=== PATIENT | male | born 1960 | race Caucasian/White ===

== ENCOUNTER 2020-06-12 16:39 | Inpatient (IN) ==
[2020-06-14] MEDS ORDERED: Nitroglycerin 0.4 MG TAB.SUBL SL PRN (04:05)
[2020-06-14] MEDS ORDERED: D5% in Water 1,000 ML IVC PRN (04:13)
[2020-06-14] MEDS ORDERED: Dextrose Gel 15 GM/37.5 ML TUBE PO PRN ×2 (04:13)
[2020-06-14] MEDS ORDERED: *HR* Dextrose 50 % in Water (Vial) 50 ML VIAL IVP PRN (04:13)
[2020-06-14] MEDS: *HR* HYDROcodone/Acet 5/325 mg TABLET PO PRN ×4 (05:53→23:55)
[2020-06-14] MEDS: INVOKAMET PO SCH ×2 (08:49→20:23)
[2020-06-14] MEDS: Insulin LISPRO 300 UNITS/3 ML VIAL SUBQ SCH ×4 (08:49→20:21)
[2020-06-14] MEDS: Furosemide 20 MG TABLET PO SCH (08:50)
[2020-06-14] MEDS: Aspirin Enteric Coated 81 MG Tablet PO SCH (08:50)
[2020-06-14] MEDS: Magnesium Oxide 400 MG TABLET PO SCH ×2 (08:50→20:23)
[2020-06-14] MEDS: lisinopriL 5 MG TABLET PO SCH (08:51)
[2020-06-14] MEDS: Gabapentin 400 MG CAPSULE PO SCH ×4 (08:51→20:22)
[2020-06-14] MEDS: Apixaban 5 MG TABLET PO SCH ×2 (08:51→20:22)
[2020-06-14] MEDS ORDERED: Insulin DETEMIR 100 UNIT/ML per UNIT SUBQ SCH (09:00)
[2020-06-14] MEDS: Insulin DETEMIR 100 UNIT/ML X5UNITS SUBQ SCH ×2 (09:12→20:22)
[2020-06-14 09:43] LABS: Basophils # 0.1 K/mcL (0.0-0.2); Basophils % 0.5 %; Eosinophils # 0.2 K/mcL (0.0-0.6); Eosinophils % 2.1 %; Hematocrit 38.5 % (37.5-50.1); Hemoglobin 12.7 g/dL (12.9-16.9); Immature Granulocytes % 0.6 % (0-4); Lymphocytes # 2.6 K/mcL (0.6-4.6); Lymphocytes % 26.7 %; Mean Corpuscular Hemoglobin 28.9 pg (28.0-33.3); Mean Corpuscular Volume 87.5 fL (83.0-100.0); Mean Platelet Volume 11.2 fL (9.4-12.4); Monocytes # 0.9 K/mcL (0.0-1.3); Monocytes % 9.2 %; Neutrophils # 5.9 K/mcL (1.6-8.9); Platelet Count 239 K/mcL (140-400); Red Cell Distribution Width 12.8 % (11.5-14.5); Segmented Neutrophils % 60.9 %; White Blood Count 9.6 K/mcL (4.3-11.1)
[2020-06-14 09:59] LABS: BUN/Creatinine Ratio 23 (6-26); Blood Urea Nitrogen 28 mg/dL (8-23); Calcium 8.6 mg/dL (8.6-10.3); Carbon Dioxide 29 mEq/L (23-29); Chloride 99 mEq/L (98-107); Glucose 330 mg/dL (70-105); Osmolality,Calculated 294 (280-300); Sodium 133 mEq/L (136-145); eGFR For African Americans > 60 (> 60); eGFR For Non-African Americans > 60 (> 60)
[2020-06-14 10:38] LABS: Troponin I 0.04 ng/mL (< 0.04)
[2020-06-14] MEDS: levoFLOXacin 750 MG TABLET PO SCH (14:51)
[2020-06-14] MEDS: Nicotine 21 MG PATCH.TD24 TD SCH (14:53)
[2020-06-15] MEDS: Nicotine 21 MG PATCH.TD24 TD SCH (08:27)
[2020-06-15] MEDS: lisinopriL 5 MG TABLET PO SCH (08:28)
[2020-06-15] MEDS: Aspirin Enteric Coated 81 MG Tablet PO SCH (08:28)
[2020-06-15] MEDS: Gabapentin 400 MG CAPSULE PO SCH ×4 (08:28→20:19)
[2020-06-15] MEDS: Magnesium Oxide 400 MG TABLET PO SCH ×2 (08:29→20:20)
[2020-06-15] MEDS: Insulin DETEMIR 100 UNIT/ML X5UNITS SUBQ SCH ×2 (08:29→20:23)
[2020-06-15] MEDS: levoFLOXacin 750 MG TABLET PO SCH (08:29)
[2020-06-15] MEDS: Apixaban 5 MG TABLET PO SCH ×2 (08:29→20:20)
[2020-06-15] MEDS: Furosemide 20 MG TABLET PO SCH (08:29)
[2020-06-15] MEDS: *HR* HYDROcodone/Acet 5/325 mg TABLET PO PRN ×4 (08:33→22:12)
[2020-06-15] MEDS: Insulin LISPRO 300 UNITS/3 ML VIAL SUBQ SCH ×4 (09:33→20:23)
[2020-06-15] MEDS: INVOKAMET PO SCH ×2 (09:50→20:26)
[2020-06-15] MEDS: polyethylene glycoL 3350 17 GM POWD.PACK PO PRN (10:22)
[2020-06-15] MEDS ORDERED: Ketorolac 30 MG/ML VIAL IM ONE (18:14)
[2020-06-15 20:24] LABS: BUN/Creatinine Ratio 18 (6-26); Blood Urea Nitrogen 24 mg/dL (8-23); Calcium 8.6 mg/dL (8.6-10.3); Carbon Dioxide 25 mEq/L (23-29); Chloride 102 mEq/L (98-107); Glucose 198 mg/dL (70-105); Magnesium 1.4 mg/dL (1.6-2.6); Osmolality,Calculated 286 (280-300); Potassium 4.6 mEq/L (3.5-5.1); Sodium 133 mEq/L (136-145); eGFR For African Americans > 60 (> 60); eGFR For Non-African Americans 53 (> 60)
[2020-06-16] MEDS: *HR* HYDROcodone/Acet 5/325 mg TABLET PO PRN ×6 (02:23→23:59)
[2020-06-16] MEDS: EXENATIDE MICROSPHERES 2 MG SQ SCH (03:29)
[2020-06-16] MEDS: levoFLOXacin 750 MG TABLET PO SCH (07:51)
[2020-06-16] MEDS: Aspirin Enteric Coated 81 MG Tablet PO SCH (07:52)
[2020-06-16] MEDS: Gabapentin 400 MG CAPSULE PO SCH ×4 (07:52→19:56)
[2020-06-16] MEDS: Furosemide 20 MG TABLET PO SCH (07:52)
[2020-06-16] MEDS: Insulin LISPRO 300 UNITS/3 ML VIAL SUBQ SCH ×4 (07:53→19:57)
[2020-06-16] MEDS: Apixaban 5 MG TABLET PO SCH ×2 (07:53→19:55)
[2020-06-16] MEDS: lisinopriL 5 MG TABLET PO SCH (07:53)
[2020-06-16] MEDS: Magnesium Oxide 400 MG TABLET PO SCH (07:53)
[2020-06-16] MEDS: INVOKAMET PO SCH ×2 (07:54→20:00)
[2020-06-16] MEDS: Nicotine 21 MG PATCH.TD24 TD SCH (07:54)
[2020-06-16] MEDS ORDERED: 0.9 % Sodium Chloride 1,000 ML IVC SCH (08:15)
[2020-06-16] MEDS: Insulin DETEMIR 100 UNIT/ML X5UNITS SUBQ SCH ×2 (08:34→19:56)
[2020-06-16] MEDS ORDERED: Bisacodyl 10 MG RECTAL SUPPOSITORY RC PRN (17:13)
[2020-06-17] MEDS: *HR* HYDROcodone/Acet 5/325 mg TABLET PO PRN ×4 (04:49→19:48)
[2020-06-17 06:38] LABS: Basophils # 0.1 K/mcL (0.0-0.2); Basophils % 0.6 %; Eosinophils # 0.2 K/mcL (0.0-0.6); Eosinophils % 2.4 %; Hematocrit 36.1 % (37.5-50.1); Hemoglobin 11.7 g/dL (12.9-16.9); Immature Granulocytes % 0.9 % (0-4); Lymphocytes # 1.9 K/mcL (0.6-4.6); Lymphocytes % 23.4 %; Mean Corpuscular HGB Conc 32.4 g/dL (31.6-35.5); Mean Corpuscular Hemoglobin 28.8 pg (28.0-33.3); Mean Corpuscular Volume 88.9 fL (83.0-100.0); Mean Platelet Volume 11.9 fL (9.4-12.4); Monocytes % 12.1 %; Neutrophils # 4.8 K/mcL (1.6-8.9); Platelet Count 227 K/mcL (140-400); Red Blood Count 4.06 M/mcL (4.19-5.50); Red Cell Distribution Width 12.9 % (11.5-14.5); Segmented Neutrophils % 60.6 %
[2020-06-17 07:19] LABS: BUN/Creatinine Ratio 24 (6-26); Blood Urea Nitrogen 30 mg/dL (8-23); Calcium 8.4 mg/dL (8.6-10.3); Carbon Dioxide 24 mEq/L (23-29); Chloride 106 mEq/L (98-107); Glucose 200 mg/dL (70-105); Magnesium 1.8 mg/dL (1.6-2.6); Osmolality,Calculated 294 (280-300); Potassium 4.6 mEq/L (3.5-5.1); Sodium 136 mEq/L (136-145); eGFR For African Americans > 60 (> 60); eGFR For Non-African Americans 59 (> 60)
[2020-06-17] MEDS: Nicotine 21 MG PATCH.TD24 TD SCH (09:39)
[2020-06-17] MEDS: lisinopriL 5 MG TABLET PO SCH (09:41)
[2020-06-17] MEDS: Apixaban 5 MG TABLET PO SCH ×2 (09:41→19:49)
[2020-06-17] MEDS: Gabapentin 400 MG CAPSULE PO SCH ×4 (09:41→19:47)
[2020-06-17] MEDS: Furosemide 20 MG TABLET PO SCH (09:41)
[2020-06-17] MEDS: levoFLOXacin 750 MG TABLET PO SCH (09:41)
[2020-06-17] MEDS: Magnesium Oxide 400 MG TABLET PO SCH ×2 (09:42→19:48)
[2020-06-17] MEDS: Aspirin Enteric Coated 81 MG Tablet PO SCH (09:42)
[2020-06-17] MEDS: Insulin LISPRO 300 UNITS/3 ML VIAL SUBQ SCH ×4 (09:42→19:51)
[2020-06-17] MEDS: Insulin DETEMIR 100 UNIT/ML X5UNITS SUBQ SCH ×2 (09:43→19:50)
[2020-06-17] MEDS: INVOKAMET PO SCH ×2 (10:10→20:16)
[2020-06-17] MEDS: Pregabalin 50 MG CAPSULE PO SCH (21:40)
[2020-06-18] MEDS: *HR* HYDROcodone/Acet 7.5/325 mg TABLET PO PRN ×5 (02:38→20:27)
[2020-06-18] MEDS: Nicotine 21 MG PATCH.TD24 TD SCH (08:56)
[2020-06-18] MEDS: Furosemide 20 MG TABLET PO SCH (08:57)
[2020-06-18] MEDS: lisinopriL 5 MG TABLET PO SCH (08:57)
[2020-06-18] MEDS: Apixaban 5 MG TABLET PO SCH ×2 (08:58→20:27)
[2020-06-18] MEDS: Magnesium Oxide 400 MG TABLET PO SCH ×2 (08:58→20:27)
[2020-06-18] MEDS: Aspirin Enteric Coated 81 MG Tablet PO SCH (08:58)
[2020-06-18] MEDS: Insulin DETEMIR 100 UNIT/ML X5UNITS SUBQ SCH ×2 (08:58→20:27)
[2020-06-18] MEDS: Pregabalin 50 MG CAPSULE PO SCH ×3 (09:00→20:27)
[2020-06-18] MEDS: INVOKAMET PO SCH ×2 (09:00→16:11)
[2020-06-18] MEDS: Insulin LISPRO 300 UNITS/3 ML VIAL SUBQ SCH ×4 (09:01→20:27)
[2020-06-18] MEDS ORDERED: Ketorolac 30 MG/ML VIAL IVP ONE (22:47)
[2020-06-19] MEDS: *HR* HYDROcodone/Acet 7.5/325 mg TABLET PO PRN ×5 (00:42→20:31)
[2020-06-19] MEDS: Nicotine 21 MG PATCH.TD24 TD SCH (08:33)
[2020-06-19] MEDS: Furosemide 20 MG TABLET PO SCH (08:33)
[2020-06-19] MEDS: Pregabalin 50 MG CAPSULE PO SCH ×3 (08:33→20:31)
[2020-06-19] MEDS: Magnesium Oxide 400 MG TABLET PO SCH ×2 (08:34→20:30)
[2020-06-19] MEDS: Aspirin Enteric Coated 81 MG Tablet PO SCH (08:34)
[2020-06-19] MEDS: lisinopriL 5 MG TABLET PO SCH (08:34)
[2020-06-19] MEDS: Apixaban 5 MG TABLET PO SCH ×2 (08:35→20:45)
[2020-06-19] MEDS: Insulin DETEMIR 100 UNIT/ML X5UNITS SUBQ SCH ×2 (08:35→20:34)
[2020-06-19] MEDS: Insulin LISPRO 300 UNITS/3 ML VIAL SUBQ SCH ×4 (08:36→20:33)
[2020-06-19] MEDS: INVOKAMET PO SCH ×2 (08:37→15:58)
[2020-06-20] MEDS: *HR* HYDROcodone/Acet 7.5/325 mg TABLET PO PRN ×4 (01:10→19:47)
[2020-06-20] MEDS: Insulin LISPRO 300 UNITS/3 ML VIAL SUBQ SCH ×4 (08:29→21:29)
[2020-06-20] MEDS: Magnesium Oxide 400 MG TABLET PO SCH ×2 (08:30→19:48)
[2020-06-20] MEDS: Insulin DETEMIR 100 UNIT/ML X5UNITS SUBQ SCH ×2 (08:30→19:59)
[2020-06-20] MEDS: Aspirin Enteric Coated 81 MG Tablet PO SCH (08:30)
[2020-06-20] MEDS: Nicotine 21 MG PATCH.TD24 TD SCH (08:30)
[2020-06-20] MEDS: Apixaban 5 MG TABLET PO SCH ×2 (08:30→19:47)
[2020-06-20] MEDS: lisinopriL 5 MG TABLET PO SCH (08:30)
[2020-06-20] MEDS: Pregabalin 50 MG CAPSULE PO SCH ×3 (08:30→19:48)
[2020-06-20] MEDS: INVOKAMET PO SCH ×2 (08:31→17:54)
[2020-06-20] MEDS: Furosemide 20 MG TABLET PO SCH (08:40)
[2020-06-20] MEDS: rOPINIRole 1 MG TABLET PO SCH (19:48)
[2020-06-21] MEDS: *HR* HYDROcodone/Acet 7.5/325 mg TABLET PO PRN ×4 (03:13→20:06)
[2020-06-21] MEDS: Magnesium Oxide 400 MG TABLET PO SCH ×2 (08:51→20:05)
[2020-06-21] MEDS: Insulin DETEMIR 100 UNIT/ML X5UNITS SUBQ SCH ×2 (08:51→20:07)
[2020-06-21] MEDS: Apixaban 5 MG TABLET PO SCH ×2 (08:51→20:05)
[2020-06-21] MEDS: Insulin LISPRO 300 UNITS/3 ML VIAL SUBQ SCH ×4 (08:51→19:58)
[2020-06-21] MEDS: Pregabalin 50 MG CAPSULE PO SCH ×3 (08:52→20:05)
[2020-06-21] MEDS: Furosemide 20 MG TABLET PO SCH (08:52)
[2020-06-21] MEDS: lisinopriL 5 MG TABLET PO SCH (08:52)
[2020-06-21] MEDS: Aspirin Enteric Coated 81 MG Tablet PO SCH (08:52)
[2020-06-21] MEDS: Nicotine 21 MG PATCH.TD24 TD SCH (09:02)
[2020-06-21] MEDS: INVOKAMET PO SCH ×2 (09:08→15:55)
[2020-06-21] MEDS: rOPINIRole 1 MG TABLET PO SCH (20:05)
[2020-06-22] MEDS: *HR* HYDROcodone/Acet 7.5/325 mg TABLET PO PRN ×5 (00:05→19:58)
[2020-06-22] MEDS: Aspirin Enteric Coated 81 MG Tablet PO SCH (08:06)
[2020-06-22] MEDS: Apixaban 5 MG TABLET PO SCH ×2 (08:07→19:44)
[2020-06-22] MEDS: Furosemide 20 MG TABLET PO SCH (08:07)
[2020-06-22] MEDS: lisinopriL 5 MG TABLET PO SCH (08:07)
[2020-06-22] MEDS: Magnesium Oxide 400 MG TABLET PO SCH ×2 (08:08→19:43)
[2020-06-22] MEDS: Pregabalin 50 MG CAPSULE PO SCH ×3 (08:08→19:44)
[2020-06-22] MEDS: Insulin LISPRO 300 UNITS/3 ML VIAL SUBQ SCH ×4 (08:08→19:49)
[2020-06-22] MEDS: Insulin DETEMIR 100 UNIT/ML X5UNITS SUBQ SCH ×2 (08:08→19:48)
[2020-06-22] MEDS: Nicotine 21 MG PATCH.TD24 TD SCH (08:09)
[2020-06-22] MEDS: INVOKAMET PO SCH ×2 (08:09→15:59)
[2020-06-22] MEDS: rOPINIRole 1 MG TABLET PO SCH (19:44)
[2020-06-23] MEDS: *HR* HYDROcodone/Acet 7.5/325 mg TABLET PO PRN ×6 (00:01→21:28)
[2020-06-23] MEDS: EXENATIDE MICROSPHERES 2 MG SQ SCH (03:16)
[2020-06-23] MEDS: Insulin LISPRO 300 UNITS/3 ML VIAL SUBQ SCH ×4 (08:00→21:31)
[2020-06-23] MEDS: lisinopriL 5 MG TABLET PO SCH (08:10)
[2020-06-23] MEDS: Nicotine 21 MG PATCH.TD24 TD SCH (08:10)
[2020-06-23] MEDS: Aspirin Enteric Coated 81 MG Tablet PO SCH (08:11)
[2020-06-23] MEDS: Furosemide 20 MG TABLET PO SCH (08:11)
[2020-06-23] MEDS: Magnesium Oxide 400 MG TABLET PO SCH ×2 (08:11→21:28)
[2020-06-23] MEDS: Apixaban 5 MG TABLET PO SCH ×2 (08:11→21:28)
[2020-06-23] MEDS: Pregabalin 50 MG CAPSULE PO SCH ×3 (08:11→21:28)
[2020-06-23] MEDS: INVOKAMET PO SCH ×2 (08:12→16:48)
[2020-06-23] MEDS: Insulin DETEMIR 100 UNIT/ML X5UNITS SUBQ SCH ×2 (10:14→21:29)
[2020-06-23] MEDS: Hyoscyamine SL 0.125 MG TAB.SUBL SL PRN (18:31)
[2020-06-23] MEDS ORDERED: Morphine Sulfate 2 MG/ML SYRINGE IVP ONE (20:09)
[2020-06-23 20:36] LABS: Basophils # 0.1 K/mcL (0.0-0.2); Basophils % 0.6 %; Eosinophils # 0.2 K/mcL (0.0-0.6); Eosinophils % 2.7 %; Hemoglobin 12.6 g/dL (12.9-16.9); Immature Granulocytes % 0.3 % (0-4); Lymphocytes # 1.9 K/mcL (0.6-4.6); Lymphocytes % 21.1 %; Mean Corpuscular HGB Conc 33.2 g/dL (31.6-35.5); Mean Corpuscular Hemoglobin 29.1 pg (28.0-33.3); Mean Corpuscular Volume 87.8 fL (83.0-100.0); Mean Platelet Volume 11.8 fL (9.4-12.4); Monocytes % 11.7 %; Neutrophils # 5.6 K/mcL (1.6-8.9); Platelet Count 199 K/mcL (140-400); Red Blood Count 4.33 M/mcL (4.19-5.50); Red Cell Distribution Width 12.9 % (11.5-14.5); Segmented Neutrophils % 63.6 %; White Blood Count 8.8 K/mcL (4.3-11.1)
[2020-06-23 20:42] LABS: Prothrombin Time 14.2 Seconds (9.4-12.1)
[2020-06-23 20:43] LABS: INR 1.2
[2020-06-23 20:46] LABS: Alanine Aminotransferase 28 Units/L (7-52); Albumin 3.2 g/dL (3.5-5.7); Albumin/Globulin Ratio 1.1 (1.1-2.2); Alkaline Phosphatase 48 Units/L (34-104); Aspartate Amino Transferase 20 Units/L (13-39); BUN/Creatinine Ratio 19 (6-26); Bilirubin,Total 0.3 mg/dL (0.3-1.0); Blood Urea Nitrogen 20 mg/dL (8-23); Calcium 8.3 mg/dL (8.6-10.3); Carbon Dioxide 24 mEq/L (23-29); Chloride 104 mEq/L (98-107); Globulin 2.8 g/dL (2.4-3.5); Glucose 177 mg/dL (70-105); Osmolality,Calculated 287 (280-300); Potassium 4.3 mEq/L (3.5-5.1); Sodium 135 mEq/L (136-145); eGFR For African Americans > 60 (> 60); eGFR For Non-African Americans > 60 (> 60)
[2020-06-23] MEDS ORDERED: Morphine Sulfate 2 MG/ML SYRINGE IVP PRN (21:09)
[2020-06-23] MEDS: rOPINIRole 1 MG TABLET PO SCH (21:28)
[2020-06-23] MEDS: Pantoprazole 40 MG VIAL IVP SCH (21:28)
[2020-06-24] MEDS: *HR* HYDROcodone/Acet 7.5/325 mg TABLET PO PRN ×4 (05:28→20:03)
[2020-06-24] MEDS: Insulin DETEMIR 100 UNIT/ML X5UNITS SUBQ SCH ×2 (07:59→20:04)
[2020-06-24] MEDS: INVOKAMET PO SCH ×2 (07:59→15:12)
[2020-06-24] MEDS: Insulin LISPRO 300 UNITS/3 ML VIAL SUBQ SCH ×4 (07:59→21:28)
[2020-06-24] MEDS: Furosemide 20 MG TABLET PO SCH (07:59)
[2020-06-24] MEDS: lisinopriL 5 MG TABLET PO SCH (08:02)
[2020-06-24] MEDS: Nicotine 21 MG PATCH.TD24 TD SCH (08:12)
[2020-06-24] MEDS: Hyoscyamine SL 0.125 MG TAB.SUBL SL PRN ×2 (08:12→20:03)
[2020-06-24] MEDS: Pantoprazole 40 MG VIAL IVP SCH (08:12)
[2020-06-24] MEDS: Apixaban 5 MG TABLET PO SCH ×2 (08:12→20:04)
[2020-06-24] MEDS: Aspirin Enteric Coated 81 MG Tablet PO SCH (08:12)
[2020-06-24] MEDS: Magnesium Oxide 400 MG TABLET PO SCH ×2 (08:12→20:04)
[2020-06-24] MEDS: Pregabalin 50 MG CAPSULE PO SCH ×3 (08:15→20:04)
[2020-06-24] MEDS: rOPINIRole 1 MG TABLET PO SCH (20:04)
[2020-06-24] MEDS: polyethylene glycoL 3350 17 GM POWD.PACK PO PRN (20:04)
[2020-06-25] MEDS: *HR* HYDROcodone/Acet 7.5/325 mg TABLET PO PRN ×2 (00:14→05:11)
[2020-06-25] MEDS: Magnesium Oxide 400 MG TABLET PO SCH (08:06)
[2020-06-25] MEDS: Furosemide 20 MG TABLET PO SCH (08:06)
[2020-06-25] MEDS: Aspirin Enteric Coated 81 MG Tablet PO SCH (08:06)
[2020-06-25] MEDS: Pregabalin 50 MG CAPSULE PO SCH (08:06)
[2020-06-25] MEDS: Nicotine 21 MG PATCH.TD24 TD SCH (08:06)
[2020-06-25] MEDS: Pantoprazole 40 MG VIAL IVP SCH (08:06)
[2020-06-25] MEDS: Insulin LISPRO 300 UNITS/3 ML VIAL SUBQ SCH ×2 (08:07→11:53)
[2020-06-25] MEDS: INVOKAMET PO SCH (08:07)
[2020-06-25] MEDS: lisinopriL 5 MG TABLET PO SCH (08:07)
[2020-06-25] MEDS: Apixaban 5 MG TABLET PO SCH (08:07)
[2020-06-25] MEDS: Insulin DETEMIR 100 UNIT/ML X5UNITS SUBQ SCH (08:13)
[2020-06-25 08:30] VITALS: BP 118/73
== END 2020-06-25 13:50 | disposition home health service (06) | DRG 202 ==
LOC: INPPIK 06-14 04:23
PROVIDERS: ADMIT Family Medicine; ATTEND Family Medicine